=== PATIENT | male | born 1975 | race Caucasian/White ===

== ENCOUNTER 2021-06-12 00:28 | Emergency (ER) | payer OTHER ==
[~2021-06-12] VITALS: Ht 180.3 cm; Wt 83.9 kg
[2021-06-12 00:39] VITALS: BP 133/89
[2021-06-12] MEDS ORDERED: SODIUM CHLORIDE 0.9% 1,000 ML IV ONE ×2 (00:45)
== END 2021-06-12 05:03 | disposition home or self-care (01) ==
LOC: ER 00:28
DX: J70.5 Respiratory conditions due to smoke inhalation (principal); R42 Dizziness and giddiness
CPT/HCPCS: 71045